=== PATIENT | male | born 1935 | race Caucasian/White ===

== ENCOUNTER 2017-07-02 11:33 | Inpatient (IN) | payer OTHER, MEDICARE ==
[~2017-07-02] VITALS: Ht 177.8 cm; Wt 71.7 kg
[~2017-07-02 11:33] MED LIST: ASPI325 PO; ATOR40TA PO; DOCU100 PO; HYDR1TAB94 PO; ISOMON20 PO; LEVSOD50 PO; METO25ER PO; NITR.4SL SL; Omeprazole20 M1 PO
[2017-07-02] MEDS ORDERED: ASPI325 PO (11:50)
[2017-07-02] MEDS ORDERED: DOCU100 PO (11:50)
[2017-07-02] MEDS ORDERED: METO25ER PO (11:51)
[2017-07-02] MEDS ORDERED: ATOR40TA PO (11:51)
[2017-07-02] MEDS ORDERED: Omeprazole20 M1 PO (11:52)
[2017-07-02] MEDS ORDERED: Isosorbide Mono30 MG PO (11:52)
[2017-07-02] MEDS ORDERED: LEVSOD50 PO (11:53)
[2017-07-02] MEDS ORDERED: Nitrostat0.4 MG SL (11:54)
[2017-07-02] MEDS ORDERED: HYDR1TAB94 PO (11:54)
[2017-07-02] MEDS ORDERED: TAGAMENT PO (12:33)
[2017-07-02] MEDS ORDERED: CYAN500 PO (12:33)
[2017-07-02] MEDS ORDERED: IRON240 MG PO (12:33)
[2017-07-02] MEDS ORDERED: MULTI VITAMIN1 EACH PO (12:33)
[2017-07-02 20:53] LABS: Hematocrit 24.9 % (37.0-53.0); Hemoglobin 8.3 g/dL (13.5-17.5)
[2017-07-03 03:24] LABS: BASOPHILS ABSOLUTE AUTO 0.01 K/mm3 (0.00-0.23); BASOPHILS PERCENT AUTO 0 % (0-2); EOSINOPHILS ABSOLUTE AUTO 0.15 K/mm3 (0.00-0.68); EOSINOPHILS PERCENT AUTO 2 % (0-6); Hematocrit 29.2 % (37.0-53.0); Hemoglobin 9.6 g/dL (13.5-17.5); IMMATURE GRAN ABSOLUTE AUTO 0.02 K/mm3 (0.00-0.10); IMMATURE GRAN PERCENT AUTO 0 % (0-1); LYMPHOCYTES ABSOLUTE AUTO 1.74 K/mm3 (0.84-5.20); LYMPHOCYTES PERCENT AUTO 18 % (21-46); MONOCYTES ABSOLUTE AUTO 1.43 K/mm3 (0.16-1.47); MONOCYTES PERCENT AUTO 15 % (4-13); Mean Corpuscular HGB Conc 32.9 g/dL (31.5-36.5); Mean Corpuscular Volume 82 fL (80-100); NEUTROPHILS ABSOLUTE AUTO 6.15 K/mm3 (1.96-9.15); NEUTROPHILS PERCENT AUTO 65 % (41-73); NRBC ABSOLUTE 0.12 K/mm3 (0.00-0.02); NRBC Auto 1.2 /100 WBC (0.0-0.2); Platelet Count 223 K/mm3 (150-400); RDW Coefficient Variation 17.4 % (11.7-14.2); RDW Standard Deviation 52.7 fL (35.1-46.3); Red Blood Cell Count 3.56 M/mm3 (4.30-5.90)
[2017-07-03 03:37] LABS: Bun/Creatinine Ratio 26.8 (12.0-20.0); Calcium, Blood 8.1 mg/dL (8.5-10.1); Creatinine, Blood 1.38 mg/dL (0.60-1.20); Potassium, Blood 4.2 mmol/L (3.5-5.5)
[2017-07-04 06:32] LABS: BASOPHILS ABSOLUTE AUTO 0.04 K/mm3 (0.00-0.23); BASOPHILS PERCENT AUTO 1 % (0-2); EOSINOPHILS PERCENT AUTO 4 % (0-6); Hematocrit 27.7 % (37.0-53.0); Hemoglobin 9.1 g/dL (13.5-17.5); IMMATURE GRAN ABSOLUTE AUTO 0.03 K/mm3 (0.00-0.10); IMMATURE GRAN PERCENT AUTO 0 % (0-1); LYMPHOCYTES ABSOLUTE AUTO 1.69 K/mm3 (0.84-5.20); LYMPHOCYTES PERCENT AUTO 20 % (21-46); MONOCYTES ABSOLUTE AUTO 1.11 K/mm3 (0.16-1.47); MONOCYTES PERCENT AUTO 13 % (4-13); Mean Corpuscular HGB 26.9 pg (26.0-34.0); Mean Corpuscular HGB Conc 32.9 g/dL (31.5-36.5); Mean Corpuscular Volume 82 fL (80-100); Mean Platelet Volume 10.5 fL (9.1-12.4); NEUTROPHILS ABSOLUTE AUTO 5.21 K/mm3 (1.96-9.15); NEUTROPHILS PERCENT AUTO 62 % (41-73); NRBC ABSOLUTE 0.11 K/mm3 (0.00-0.02); NRBC Auto 1.3 /100 WBC (0.0-0.2); Platelet Count 214 K/mm3 (150-400); RDW Coefficient Variation 17.6 % (11.7-14.2); RDW Standard Deviation 52.1 fL (35.1-46.3); Red Blood Cell Count 3.38 M/mm3 (4.30-5.90); White Blood Cell Count 8.38 K/mm3 (4.00-11.30)
[2018-04-25] MEDS ORDERED: FURO20 PO (13:58)
[2018-04-25] MEDS ORDERED: Prilosec Otc20 MG PO (13:58)
[2018-04-25] MEDS ORDERED: Zantac150 MG PO (13:58)
[2018-04-25] MEDS ORDERED: SALONPAS PATCH1 EACH TP (14:01)
[2018-04-25] MEDS ORDERED: Aspir-Trin325 MG PO (15:38)
[2018-04-25] MEDS ORDERED: ASCO500 PO (15:38)
[2018-04-25] MEDS ORDERED: Ferrous Sulfat325 M2 PO (15:39)
[2018-04-25] MEDS ORDERED: VITAMIN D5000 UNIT PO (15:39)
[2018-04-25] MEDS ORDERED: VITAMIN E100 UNI1 PO (15:40)
[2018-04-25] MEDS ORDERED: MELA3 PO (16:56)
[2018-04-28] MEDS ORDERED: ATOR80 PO (09:39)
[2018-04-28] MEDS ORDERED: LOSA25 PO (09:39)
[2018-04-28] MEDS ORDERED: ALBU90OI INH (09:40)
== END 2017-07-04 14:47 | disposition home or self-care (01) | DRG 378 ==
LOC: ER 11:33 → MEDS 13:13 → SURS 15:48
PROVIDERS: Hospitalist; Internal Medicine Gastroenterology
PROC: 30233N1 Transfusion of Nonautologous Red Blood Cells into Peripheral Vein, Percutaneous Approach (ICD-10-PCS; 2017-07-02)
PROC: 0DB68ZX Excision of Stomach, Via Natural or Artificial Opening Endoscopic, Diagnostic (ICD-10-PCS; principal; 2017-07-03 16:00)
DX: K92.2 Gastrointestinal hemorrhage, unspecified (principal); D62 Acute posthemorrhagic anemia; I27.20 Pulmonary hypertension, unspecified; E03.9 Hypothyroidism, unspecified; I10 Essential (primary) hypertension; I25.10 Atherosclerotic heart disease of native coronary artery without angina pectoris; K21.0 Gastro-esophageal reflux disease with esophagitis; I08.0 Rheumatic disorders of both mitral and aortic valves; Z66 Do not resuscitate; K44.9 Diaphragmatic hernia without obstruction or gangrene; K22.70 Barrett's esophagus without dysplasia; N40.0 Benign prostatic hyperplasia without lower urinary tract symptoms; I25.2 Old myocardial infarction; Z87.891 Personal history of nicotine dependence
CPT/HCPCS: 36415; 36430; 80048; 85014; 85018; 85025; 86850; 86900; 86901; 86923; 88305; 88342; 96374; 96375; 99285; C9113; J1940; J2250; J2370; J2405; J3010; J3480; J7030; J7120; P9016; Q2038

== ENCOUNTER 2020-04-30 10:00 | Inpatient (IN) | payer OTHER, MEDICARE ==
[~2020-04-30] VITALS: Ht 170.2 cm; Wt 70.3 kg
[~2020-04-30 10:00] MED LIST changes: +ALBU90OI INH; +ASCO500 PO; +ATOR80 PO; +Aspir-Trin325 MG PO; +CYAN500 PO; +FURO20 PO; +Ferrous Sulfat325 M2 PO; +IRON240 MG PO; +Isosorbide Mono30 MG PO; +LOSA25 PO; +MELA3 PO; +MULTI VITAMIN1 EACH PO; +Nitrostat0.4 MG SL; +Prilosec Otc20 MG PO; +SALONPAS PATCH1 EACH TP; +TAGAMENT PO; +VITAMIN D5000 UNIT PO; +VITAMIN E100 UNI1 PO; +Zantac150 MG PO
[2020-04-30 10:48] LABS: BASOPHILS ABSOLUTE AUTO 0.04 K/mm3 (0.00-0.23); BASOPHILS PERCENT AUTO 1 % (0-2); EOSINOPHILS PERCENT AUTO 1 % (0-6); Hematocrit 27.1 % (37.0-53.0); Hemoglobin 8.9 g/dL (13.5-17.5); IMMATURE GRAN ABSOLUTE AUTO 0.02 K/mm3 (0.00-0.10); IMMATURE GRAN PERCENT AUTO 0 % (0-1); LYMPHOCYTES PERCENT AUTO 15 % (21-46); MONOCYTES ABSOLUTE AUTO 0.81 K/mm3 (0.16-1.47); MONOCYTES PERCENT AUTO 11 % (4-13); Mean Corpuscular HGB 30.7 pg (26.0-34.0); Mean Corpuscular HGB Conc 32.8 g/dL (31.5-36.5); Mean Corpuscular Volume 93 fL (80-100); Mean Platelet Volume 9.6 fL (9.1-12.4); NEUTROPHILS ABSOLUTE AUTO 5.44 K/mm3 (1.96-9.15); NEUTROPHILS PERCENT AUTO 73 % (41-73); Platelet Count 279 K/mm3 (150-400); RDW Coefficient Variation 15.3 % (11.7-14.2); RDW Standard Deviation 53.1 fL (35.1-46.3); White Blood Cell Count 7.51 K/mm3 (4.00-11.30)
[2020-04-30 11:13] LABS: Alanine Aminotransfer (ALT/SGP 22 U/L (12-78); Albumin, Blood 3.6 g/dL (3.4-5.0); Alk Phos 71 U/L (50-136); Anion Gap 6 mmol/L (6-16); Aspartate Aminotrans (AST/SGOT 25 U/L (12-37); Bilirubin, Total 0.3 mg/dL (0.1-1.0); Blood Urea Nitrogen 19 mg/dL (8-24); CO2, Blood 26 mmol/L (21-32); Calcium, Blood 10.2 mg/dL (8.5-10.1); Chloride, Blood 104 mmol/L (98-108); Creatinine, Blood 1.12 mg/dL (0.60-1.20); Globulin, Blood 3.5 g/dL (2.2-4.0); Glomerular Filtration Rate >60 (60-); Glucose, Blood 107 mg/dL (70-99); Potassium, Blood 3.9 mmol/L (3.5-5.5); Sodium, Blood 136 mmol/L (136-145); Total Protein, Blood 7.1 g/dL (6.4-8.2)
--- NOTE | 2020-04-30 15:30 | NUR ---
echocardiogram complete
== END 2020-04-30 15:45 | disposition left against medical advice (07) | DRG 281 ==
LOC: ER 10:00 → PCU 12:33 → ER 15:45 → PCU 15:45
PROVIDERS: Emergency Medicine; ADMIT Internal Medicine
DX: I21.4 Non-ST elevation (NSTEMI) myocardial infarction (principal); I50.22 Chronic systolic (congestive) heart failure; I11.0 Hypertensive heart disease with heart failure; K21.9 Gastro-esophageal reflux disease without esophagitis; E03.9 Hypothyroidism, unspecified; J44.9 Chronic obstructive pulmonary disease, unspecified; E78.5 Hyperlipidemia, unspecified; Z87.891 Personal history of nicotine dependence; I25.10 Atherosclerotic heart disease of native coronary artery without angina pectoris; I08.3 Combined rheumatic disorders of mitral, aortic and tricuspid valves
CPT/HCPCS: 71046; 80053; 83880; 84484; 85025; 85730; 93005; 93010; 96365; 96375; 99285-25; A9270-GY; C8923; J1644